=== PATIENT | male | born 1975 | race Caucasian/White ===

== ENCOUNTER 2020-10-20 13:36 | Observation (INO) | payer BC, OTHER ==
[~2020-10-20] VITALS: Ht 182.9 cm; Wt 113.4 kg
[~2020-10-20 13:36] MED LIST: ALDACTONE 25MG25 MG PO; AMLODIPINE BESY10 MG PO; CATAPRES 0.1MG0.1 MG PO; COZAAR100 MG PO; EFFEXOR XR75 MG PO; FLONASE 0.05% N16 GM; GLUCOPHAGE 500500 MG PO; GLUCOTROL 10 MG10 MG PO; LIPITOR TAB 2020 MG PO; LOPRESSOR100 MG PO; SILDENAFIL20 MG PO
[2020-10-20 15:12] LABS: HEMOGLOBIN 14.4 gm/dl (14.0-17.5); RED BLOOD COUNT 4.79 M/UL (4.20-5.50); WHITE BLOOD COUNT 10.6 K/UL (4.5-11.0)
[2020-10-20 15:21] LABS: BUN/CREATININE RATIO 18 (0-10)
[2020-10-20] MEDS ORDERED: COLACE 100MG C100 MG PO (17:00)
[2020-10-20] MEDS ORDERED: IBUPROFEN200 MG PO (17:01)
[2020-10-20] MEDS ORDERED: PEPTO-BISM262 MG/15 PO (17:01)
[2020-10-20] MEDS ORDERED: OMEPRAZOLE20 MG PO (17:02)
[2020-10-20] MEDS ORDERED: TUMS SMOOTHIES300 MG PO (17:02)
[2020-10-20] MEDS ORDERED: JANUVIA25 MG PO (20:32)
[2020-10-21 03:16] LABS: HEMOGLOBIN 13.1 gm/dl (14.0-17.5); RED BLOOD COUNT 4.36 M/UL (4.20-5.50)
[2020-10-21 03:47] LABS: BUN/CREATININE RATIO 17 (0-10)
== END 2020-10-21 17:49 | disposition home or self-care (01) ==
LOC: ER1 13:36 → CDU 16:29 → MED SURG 4 16:29
PROVIDERS: Preventive Medicine Occupational Medicine; ADMIT Internal Medicine
DX: R07.89 Other chest pain (principal); Z20.822 Contact with and (suspected) exposure to COVID-19; E11.9 Type 2 diabetes mellitus without complications; I10 Essential (primary) hypertension; E78.5 Hyperlipidemia, unspecified; Z88.5 Allergy status to narcotic agent; Z88.8 Allergy status to other drugs, medicaments and biological substances; Z86.16 Personal history of COVID-19; R06.02 Shortness of breath; Z87.898 Personal history of other specified conditions; E66.9 Obesity, unspecified; N17.9 Acute kidney failure, unspecified; R94.31 Abnormal electrocardiogram [ECG] [EKG]; I37.1 Nonrheumatic pulmonary valve insufficiency
CPT/HCPCS: ECHO; 0240U; 36415; 36600; 70551; 71045; 71250; 72125; 78452; 80053; 80061; 81001; 82164; 82550; 82553; 82803; 82962; 83036; 83605; 83690; 83874; 83880; 84439; 84443; 84484; 85025; 85379; 85652; 86140; 87086; 93005; 93017; 93306; 99285; A9502; G0378; J1650; J2785

== ENCOUNTER → 2021-08-21 | Outpatient (CLI) | payer OTHER ==
[~2021-08-21] MED LIST changes: +COLACE 100MG C100 MG PO; +IBUPROFEN200 MG PO; +JANUVIA25 MG PO; +OMEPRAZOLE20 MG PO; +PEPTO-BISM262 MG/15 PO; +TUMS SMOOTHIES300 MG PO
== END ==
LOC: KOH-I 14:13
DX: M54.42 Lumbago with sciatica, left side (principal); M47.816 Spondylosis without myelopathy or radiculopathy, lumbar region
CPT/HCPCS: 72100